=== PATIENT | male | born 1990 | race Caucasian/White ===

== ENCOUNTER 2018-09-25 21:02 | Emergency (ER) | payer OTHER ==
[~2018-09-25] VITALS: Ht 185.4 cm; Wt 85.5 kg
[2018-09-26] MEDS ORDERED: METOCLOPRAMIDE 10 MG TAB PO ONE (00:45)
[2018-09-26] MEDS ORDERED: ACETAMINOPHEN 325 MG TAB PO ONE (00:45)
[2018-09-26 01:35] LABS: INFLUENZA A AMPLIFICATION NEGATIVE (NEGATIVE); INFLUENZA B AMPLIFICATION NEGATIVE (NEGATIVE)
[2018-09-26] MEDS ORDERED: REGL10TA6 PO (01:42)
[2018-09-26 01:48] VITALS: BP 119/61
== END 2018-09-26 01:49 | disposition home or self-care (01) ==
LOC: M ED 21:02
DX: R11.2 Nausea with vomiting, unspecified (principal); R19.7 Diarrhea, unspecified; R50.9 Fever, unspecified; M54.9 Dorsalgia, unspecified; G89.29 Other chronic pain